=== PATIENT | male | born 1980 | race Caucasian/White ===

== ENCOUNTER 2021-07-21 11:06 | Outpatient (CLI) | payer OTHER ==
--- NOTE | 2021-07-21 12:02 | SLEEP CARE CONSULTATION ---
Information from patient questionnaire entered by Dexter Wing MA. I have reviewed and concur with the information entered by Dexter Wing MA. This document represents the service I personally performed and the decisions made by me, Angela Vargas ARNP. History of Present Illness Service Date and Time: 07/21/2021 1106 Reason for Visit: New patient (ONSET 06/07/2016, ) Chief Complaint: reports: Unrefreshed sleep, Snoring, Excessive daytime sleepiness, Observed pauses in breathing, Fatigue, Frequent awakenings at night Date of Onset: 4 YEARS Usual bedtime: 2100 Time it takes to fall asleep: 20 - 1 HOUR Snores at night: Yes Observed to quit breathing while asleep: Yes Sleeps alone due to snoring: No Number of times waking at night: SEVERAL Reasons for waking at night: reports: Snoring, Gasping for air, Other (unknown reason or changing positions). denies: Choking Toss, Turn, or Twitch while sleeping: Yes Recalls having dreams: Yes (SOMETIMES) Usually gets out of bed at: 0600; 0800 on weekends Feels refreshed in the morning: No Morning headache: Yes (SOMETIMES; 2 times a week, last about 2 hrs) Sleepy or fatigued during the day: Yes Ever fallen asleep while driving: No Takes day naps: Yes (every afternoon for an hour) Dreams during day naps: Yes Prior sleep studies: No Additional HPI information: I had the pleasure of seeing AMY HARRISON today regarding the possibility of him having a sleep disorder. His current complaints are unrefreshed sleep, snoring, frequent night awakenings, observed pauses in breathing, excessive daytime sleepiness and fatigue. He states his has recorded him snoring and "startling awake". He states his snoring is getting worse. He wakes up feeling groggy in the morning and is tired throughout the day. His tells him that his breathing will go quiet and then there is a gasping/intake of breath. He has been taking a nap daily for about an hour. He was talking with his dad recently and found out that his father had been diagnosed with sleep apnea and was on a PAP machine. 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 Patient is and lives in . Have you smoked in the past 12 months: No Cigarettes per day (20/pack): 6 Years of smokin Quit date: 2018 Smoking Pack Years: 3.3 Alcohol use: Yes Alcohol amount and frequency: 1 -2 WEEKLY Caffeine use: Yes Caffeine amount and frequency: 1-2 WEEKLY Family History Family history of sleep disordered breathing: Yes Family Hx Sleep Apnea: Father: Snoring, Sleep apnea - Treated Allergies and Home Medications Known drug allergies: No Drug allergies reviewed: Yes (NKDA) Home medication list reviewed: Yes (Ibuprofen, prn) Review of Systems Weight gain over past 5 years: 20 Weight loss over past 5 years: 20 Cardiovascular: reports: high blood pressure (occasional borderline in doctors office) Gastrointestinal: denies: heartburn Urinary: reports: frequency Neurological: reports: head trauma (hit head in shower, 2009) Psychiatric: denies: anxiety, depression Ear/Nose/Throat: reports: wisdom teeth removed. denies: tonsillectomy Physical Exam Vital signs obtained and entered by: Kevin WING CMA AAMA Blood Pressure: 121/81 (RESP 18, PULSE 84, RIGHT) Cuff size: wrist Heart Rate: 78 O2 Saturation: 97 (PAPER MASK) Height: 6 ft 3.5 in Weight: 230 lb Body Mass Index: 28.3 BMI Classification: Overweight Neck circumference: 15 (INCHES) Mouth and throat: narrow oropharynx Soft palate: long Hard palate: normal Uvula: normal Uvula visualization: 50% Mallampati Class II Tongue: normal in size Tonsils: small Chin and jaw: normal size and position Neck: normal w/o lymphadenopathy or thyromegaly Heart: regular rate and rhythm Lungs: clear bilaterally Impression and Plan 1. Suspected Obstructive Sleep Apnea-Hypopnea Syndrome, as suggested by a history of loud and irregular snoring, observed cessation of breath while asleep, gasping or choking in sleep, morning headache, frequent awakening during the night, unrefreshed sleep, cognitive impairment, and excessive daytime sleepiness. Narrow oropharynx and obesity are common predisposing factors for obstructive sleep apnea-hypopnea syndrome. I recommend proceeding to polyso mnography to confirm the diagnosis and to assess severity. If the patient has significant sleep disordered breathing, a manual CPAP titration study will also be performed to find the optimal treatment pressure. I informed the patient of what the sleep studies involve and after some discussion, obtained agreement to proceed. The pathophysiology of obstructive sleep apnea-hypopnea syndrome was discussed with the patient and health risks of cardiovascular and cerebrovascular disease if not treated. Risks of drowsy driving discussed in detail and patient advised to avoid long distance driving and to sample puller at the first sign of drowsiness. Patient agreed to plan. * Schedule polysomnography * Avoid long distance driving or driving when feeling sleepy. * Avoid alcohol, sedative and muscle relaxant around bedtime. * Attempt to lose weight. * Review instructions provided by trained office staff on how to prepare for the sleep study. * Return for follow-up after sleep study completed. Counseling Topics: Weight loss health impact Visit Type: In Office Time Spent with Patient (minutes): 30 Provider Statement: I spent 100% of the Face to Face Visit with the patient with greater than 50% spent counseling the patient and coordination of care.
[2021-07-21 13:06] VITALS: BP 121/81
== END 2021-07-21 11:07 | disposition home or self-care (01) ==
LOC: SC 11:06
PROVIDERS: ATTEND Nurse Practitioner Family
DX: R06.83 Snoring (principal); G47.8 Other sleep disorders; R06.81 Apnea, not elsewhere classified; G47.10 Hypersomnia, unspecified; R53.83 Other fatigue; E66.3 Overweight; Z68.28 Body mass index [BMI] 28.0-28.9, adult
CPT/HCPCS: 99203; 99212